=== PATIENT | female | born 1975 | race American Indian/Alaskan Native ===

== ENCOUNTER 2019-03-31 05:45 | Observation (INO) | payer BC, OTHER ==
[2019-03-30 12:01] LABS: Basophils % (Auto) 0.2 % (0.0-1.8); Eosinophils % (Auto) 1.1 % (0.0-4.3); Hematocrit 40.9 % (30.3-42.9); Hemoglobin 13.7 gm/dl (10.1-14.3); Lymphocytes # (Auto) 1.8 K/mm3 (1.2-5.4); Lymphocytes % (Auto) 40.7 % (13.4-35.0); Mean Corpuscular HGB Conc 34 % (30-34); Mean Corpuscular Volume 95 fl (79-97); Monocytes # (Auto) 0.3 K/mm3 (0.0-0.8); Monocytes % (Auto) 6.8 % (0.0-7.3); Platelet Count 167 K/mm3 (140-440); Red Cell Distribution Width 13.8 % (13.2-15.2)
--- NOTE | 2019-03-30 13:04 | Anesthesia Consultation ---
Anesthesia Consult and Med Hx Date of service: 03/30/19 - Airway Anesthetic Teeth Evaluation: Good ROM Head & Neck: Adequate Mental/Hyoid Distance: Adequate Mallampati Class: Class II Intubation Access Assessment: Good - Pulmonary Exam CTA: Yes - Cardiac Exam Cardiac Exam: RRR - Pre-Operative Health Status ASA Pre-Surgery Classification: ASA1 Proposed Anesthetic Plan: General - Pulmonary Hx Smoking: No - Central Nervous System Hx Psychiatric Problems: No - Gastrointestinal Hx Gastroesophageal Reflux Disease: Yes - Other Systems Hx Alcohol Use: Yes (Occas) Hx Cancer: No
[~2019-03-31 05:45] MED LIST: LACTATED RINGERS 1,000 ML IV SCH; NEURONTIN PO NR; PEPCID PO NR; VERSED IV NR
[2019-03-31] MEDS ORDERED: NEURONTIN PO NR (06:00)
[2019-03-31] MEDS ORDERED: PEPCID IV NR (06:00)
[2019-03-31] MEDS ORDERED: SUBLIMAZE IV PRN (06:00)
[2019-03-31] MEDS ORDERED: VERSED IV NR (06:00)
[2019-03-31] MEDS ORDERED: NACL BACTERIOSTATIC INFILTRATI ONE (06:32)
[2019-03-31] MEDS ORDERED: MARCAINE-EPI 0.25%-1:200,000 INFILTRATI ONE (07:19)
[2019-03-31] MEDS ORDERED: DECADRON ONE ×2 (07:19→07:26)
[2019-03-31] MEDS ORDERED: ZOFRAN ONE (07:26)
[2019-03-31] MEDS ORDERED: XYLOCAINE MPF 2% ONE (07:26)
--- NOTE | 2019-03-31 07:26 | History and Physical Report ---
History of Present Illness Date of examination: 03/31/19 Date of admission: 03/31/2019 Chief complaint: dysfunctional uterine bleeding History of present illness: 43y/o with dysfunctional uterine bleeding and dysmenorrhea. The patient reports worsening of her symptoms despite an attempt at medical management. Pelvic ultrasound demonstrates findings of a uterus measuring 9.1cm. Endometrial biopsy results revealed findings of benign endometrium and an endometrial polyp. The patient has elected for definitive surgical management. Past History Past Medical History: thyroid disease Past Surgical History: no surgical history Social history: - Obstetrical History : 2 Para: 2 Hx # Term Pregnancies: 2 Number of Pregnancies: 0 Spontaneous Abortions: 0 Induced : 0 Number of Living Children: 2 Medications and Allergies Allergies Allergy/AdvReac Type Severity Reaction Status Date / Time gluten Allergy GI UPSET Verified 03/30/19 12:00 nut - unspecified Allergy Anaphylaxis Verified 03/30/19 11:59 Home Medications Medication Instructions Recorded Confirmed Last Taken Type Norgestimate-Ethinyl Estradiol 1 tab PO DAILY 03/26/19 03/26/19 Unknown History [Sprintec 28 Day Tablet] Active Meds: Active Medications Celecoxib (Celebrex) 200 mg PO PREOP NR Stop: 03/31/19 23:59 Last Admin: 03/31/19 06:40 Dose: 200 mg Documented by: Famotidine (Pepcid) 20 mg IV ONCE NR Stop: 03/31/19 23:59 Last Admin: 03/31/19 06:40 Dose: 20 mg Documented by: Fentanyl (Sublimaze) 100 mcg IV ONCE PRN PRN Reason: sedation for nerve block Stop: 03/31/19 23:59 Gabapentin (Neurontin) 300 mg PO PREOP NR Stop: 03/31/19 23:59 Last Admin: 03/31/19 07:14 Dose: 300 mg Documented by: Lactated Ringer's (Lactated Ringers) 1,000 mls @ 100 mls/hr IV DIRECT IDA Last Admin: 03/31/19 06:40 Dose: 100 mls/hr Documented by: Midazolam HCl (Versed) 2 mg IV PREOP NR Stop: 03/31/19 23:59 Review of Systems All systems: negative Genitourinary: vaginal bleeding - Vital Signs Vital signs: Vital Signs Temp Pulse Resp BP Pulse Ox 98 F 56 L 20 136/89 100 03/30/19 11:30 03/30/19 11:30 03/30/19 11:30 03/30/19 11:30 03/30/19 11:30 Temp Pulse Resp BP Pulse Ox 97.8 F 62 18 140/97 100 03/31/19 06:56 03/31/19 06:56 03/31/19 06:56 03/31/19 06:56 03/31/19 06:56 - Physical Exam Breasts: Positive: deferred Cardiovascular: Regular rate Lungs: Positive: Clear to auscultation Abdomen: Positive: normal appearance Results Result Diagrams: 03/30/19 11:54 Abnormal lab results 03/30/19 Range/Units 11:54 Lymph % (Auto) 40.7 H (13.4-35.0) % All other labs normal. Assessment and Plan - Patient Problems (1) Dysfunctional uterine bleeding Current Visit: Yes Status: Acute Plan to address problem: patient scheduled to undergo a robotic hysterectomy and salpingectomy (2) Dysmenorrhea Current Visit: Yes Status: Acute
[2019-03-31] MEDS ORDERED: DIPRIVAN 10 MG/ML IV ONE (07:27)
[2019-03-31] MEDS ORDERED: SUBLIMAZE ONE (07:27)
[2019-03-31] MEDS ORDERED: NEOSPORIN GU IR ONE ×2 (07:33→09:40)
[2019-03-31] MEDS ORDERED: ANCEF/STERILE WATER 2 GM/20 ML 2 GM/20 ML SYRINGE IV NR (08:00)
[2019-03-31] MEDS ORDERED: NACL 0.9% IR ONE ×2 (09:40)
[2019-03-31] MEDS ORDERED: ZEMURON IV ONE (10:00)
--- NOTE | 2019-03-31 10:02 | Operative Report ---
Operative Report Operative Report: Date of surgery: 03/31/2019 Preoperative diagnoses: Dysfunctional uterine bleeding; dysmenorrhea; endometrial polyp Postoperative diagnoses: same as above; right ovarian cyst Procedure: Robotic hysterectomy; bilateral salpingectomy; right ovarian cystotomy Surgeon: Maricarmen Clay M.D. Rn Acute Dialysis: [facility] Anesthesia: Gen. endotracheal anesthesia Estimated blood loss: 100 mL Pathology: Uterus, cervix, bilateral tubes Indication: 43-year-old with a history dysfunctional uterine bleeding and dysmenorrhea. The patient elected to undergo definitive surgical management. Procedure: The patient was taken to the operating room and given general endotracheal anesthesia without complication. She is prepped and draped in a normal sterile fashion. A bivalve speculum was placed in the patient's vagina and a single- tooth tenaculum placed on the anterior lip of the cervix. The uterus was sounded with the uterine sound. A [employer] uterine manipulator was placed in the bivalve speculum was then removed. Attention was then turned to the patient's abdomen where a millimeter supra umbilical skin incision was then made. A Veress needle was placed and peritoneal entry was verified water-filled syringe. Insufflation of the peritoneal cavity was performed with CO2 gas. The 12 mm trocar was then placed under direct visualization. An additional 8 mm trocar was placed on the patient's left and right lateral side just opposite of the supraumbilical trocar. An additional 5 mm right lateral trocar was then placed as the accessory port. The patient was then placed in steep Trendelenburg. The da Adrienne robot was then engaged. A fenestrated forcep was placed in arm 2 and a vessel sealer was placed in arm 1. General survey of the abdomen and pelvis reveal evidence of a normal size uterus and tubes. No findings of a simple right ovarian cyst. The surgeon then transferred to the surgical console. The mesosalpinx was then isolated on the right. The vessel sealer was used to coagulate the mesosalpinx which was then transected. The tube was transected from the ovary. The tubo-ovarian ligament was then coagulated and transected. The round ligament was then coagulated and transected also. The vesicouterine peritoneum was then entered from the patient's right side. The uterine vessels were then coagulated with the vessel sealer. The vessels were then transected . Attention was then turned to the patient's left side where the tubo-ovarian ligament and mesosalpinx were again isolated coagulated and transected. The vesical peritoneum was then entered from the left and joined in the midline. Peritoneum was reflected off of the lower uterine segment. Uterine vessels were then coagulated and then transected. The blood supply to the uterus was adequately contained, a posterior colpotomy was made. The V care ring was visualized. Posterior colpotomy was created with the monopolar scissors. The incision was continued circumferentially until anterior colpotomy was made. The cervix and uterus were amputated from the vaginal cuff. The uterus was then removed along with the tubes bilaterally through the vagina and a warm laparotomy sponge was placed and maintain the pneumoperitoneum. Monopolar scissors were used to incise the right ovarian cysts with evacuation of clear fluid. The vaginal cuff was then closed in a running fashion with V lock suture. Irrigation of the pelvis was performed. Hemoblast was applied to the incision. The supraumbilical 12 mm trocar site was closed with the Oleksandr Zee device. The skin was then reapproximated with 4-0 Monocryl. The tissue was sent to pathology which included the cervix and uterus. The patient was then successfully extubated. She was then taken to the recovery room in stable condition. All sponge laps and needle counts were correct x2.
[2019-03-31] MEDS ORDERED: PHENYLEPHRINE/NS Syringe 1,000 MCG/10 ML IV ONE (10:12)
[2019-03-31] MEDS ORDERED: ZOFRAN IV PRN ×2 (10:30→11:30)
[2019-03-31] MEDS: TORADOL IV SCH ×2 (10:45→17:40)
[2019-03-31] MEDS ORDERED: IBUPROFEN PO PRN (11:00)
[2019-03-31] MEDS ORDERED: DILAUDID IV PRN (11:00)
[2019-03-31] MEDS ORDERED: PERCOCET 5/325 PO PRN (11:30)
[2019-03-31] MEDS: D5LR 1,000 ML IV SCH ×2 (13:25→22:47)
[2019-03-31] MEDS: MORPHINE IV PRN ×2 (13:26→23:08)
--- NOTE | 2019-03-31 13:44 | Anesthesia Day of Surgery ---
Anesthesia Day of Surgery - Day of Surgery Patient Examined: Yes Patient H&P Reviewed: Yes Patient is NPO: Yes
--- NOTE | 2019-03-31 13:44 | Post Anesthesia Evaluation ---
- Post Anesthesia Evaluation Patient Participated: Yes Airway Patent: Yes Stable Respiratory Function: Yes Nausea/Vomiting: No Temp > 96.8F: Yes Pain Manageable: Yes Adequeate Hydration: Yes Anesthesia Complications: No
[2019-03-31] MEDS ORDERED: AMBIEN PO PRN (22:00)
[2019-04-01] MEDS: TORADOL IV SCH (05:00)
[2019-04-01] MEDS: D5LR 1,000 ML IV SCH (05:04)
[2019-04-01 06:24] LABS: Hematocrit 37.8 % (30.3-42.9); Hemoglobin 12.6 gm/dl (10.1-14.3)
[2019-04-01 08:39] VITALS: BP 114/71
--- NOTE | 2019-04-01 08:47 | Progress Note ---
Assessment and Plan - Patient Problems (1) Dysfunctional uterine bleeding Current Visit: Yes Status: Acute Plan to address problem: patient doing well discharge home (2) Dysmenorrhea Current Visit: Yes Status: Acute Subjective - Subjective Date of service: 04/01/19 Interval history: Patient without any significant complaints. Pain is being controlled. Tolerated clear diet Patient reports: appetite normal, voiding normally, pain well controlled Objective - Vital Signs Latest vital signs: Vital Signs Temp Pulse Resp BP BP Pulse Ox 04/01/19 07:28 98.1 F 58 L 18 114/71 99 04/01/19 06:10 98.2 F 61 18 118/73 100 04/01/19 00:25 98.8 F 94 H 18 122/76 100 03/31/19 20:13 98.2 F 89 18 140/92 99 03/31/19 16:02 97.7 F 84 18 130/83 03/31/19 11:40 97.4 F L 71 14 134/86 100 03/31/19 11:15 58 L 14 128/78 100 03/31/19 11:00 97.4 F L 57 L 14 123/76 100 03/31/19 10:45 55 L 14 123/74 100 03/31/19 10:40 55 L 14 113/69 100 03/31/19 10:34 97.1 F L 52 L 14 108/61 100 Intake and Output 03/31/19 04/01/19 04/01/19 22:59 06:59 14:59 Intake Total 1480 1025.417 Output Total 1600 800 Balance -120 225.417 Intake: IV 1000 785.417 D5lr 1,000 ml @ 125 mls/ 1000 785.417 hr IV DIRECT IDA Rx#: [id number] Oral 480 Intake, Free Water 240 Output: Urine 1600 800 Indwelling Catheter 1600 800 Other: Total, Intake Amount 480 Total, Output Amount 1600 800 - Exam Abdomen: Present: normal appearance, soft Incision: Present: normal
--- NOTE | 2019-04-01 08:49 | Discharge Summary ---
Providers - Providers Date of Admission: 03/31/19 10:03 Date of discharge: 04/01/19 Attending physician: SAYDA ROGERS Primary care physician: MARIA ISABEL ESCALANTE Hospitalization Reason for admission: other (dysfunctional uterine bleeding) Procedure: other (robotic hysterectomy and salpingectomy) Incision: normal Discharge diagnosis: other (DUB) Hospital course: Patient admitted the day of surgery. Underwent a robotic hysterectomy. See op note. Postop uneventful Condition at discharge: Good Disposition: DC-01 TO HOME OR SELFCARE - Discharge Diagnoses (1) Dysfunctional uterine bleeding Status: Acute (2) Dysmenorrhea Status: Acute Plan - Discharge Medications Prescriptions: Ibuprofen [Motrin] 800 mg PO Q8HR PRN #60 tablet PRN Reason: Pain, Mild (1-3) oxyCODONE /ACETAMINOPHEN [Percocet 5/325] 1 tab PO Q6HR PRN #30 tablet PRN Reason: Pain - Provider Discharge Summary Activity: no sex for 6 weeks, no heavy lifting 4 weeks, no strenuous exercise Diet: routine Instructions: routine Additional instructions: [] Smoking cessation referral if applicable(refer to patient education folder for contact #) [] Refer to [facility] Booklet Call your doctor immediately for: * Fever > 100.5 * Heavy vaginal bleeding ( >1 pad per hour) * Severe persistent headache * Shortness of breath * Reddened, hot, painful area to leg or breast * Drainage or odor from incision. * Keep incision clean and dry at all times and follow doctor's instructions regarding bathing/showering schedule followup with Dr. Orona in 4 weeks - Follow up plan
== END 2019-04-01 11:55 | disposition home or self-care (01) ==
LOC: OR 05:45 → OB 10:03
PROVIDERS: ADMIT Obstetrics & Gynecology; ATTEND Obstetrics & Gynecology
DX: N93.8 Other specified abnormal uterine and vaginal bleeding (principal); N83.201 Unspecified ovarian cyst, right side
CPT/HCPCS: 36415; 58571; 64450; 84703; 85014; 85018; 85025; 86850; 86900; 86901; 88307; 96374; 96375; 96376; A4217; G0378; J0690; J1100; J1885; J2250; J2270; J2370; J2405; J2704; J3010; J7120; J7121; S2900